=== PATIENT | male | born 1990 | race Caucasian/White ===

== ENCOUNTER → 2018-07-18 | Outpatient (CLI) | payer OTHER ==
[~2018-07-18] MED LIST: CEPH500C PO; CYCL10TA9 PO; NAPR-243 PO
--- NOTE | 2018-07-18 13:42 | Diagnostic Imaging Report ---
INDICATION: Palpable abnormality in the forehead soft tissues. FINDINGS: Sonographic interrogation over the areas of soft tissue prominence in the forehead was performed. No discrete mass is seen. No fluid collection is identified. IMPRESSION: No sonographic abnormality is detected. Dictated by: Dictated on workstation # [id number]
== END ==
LOC: RAD 11:54
PROVIDERS: ATTEND Nurse Practitioner Community Health
DX: R22.0 Localized swelling, mass and lump, head (principal)
CPT/HCPCS: 76536